=== PATIENT | male | born 1980 | race Caucasian/White ===

== ENCOUNTER 2020-11-21 14:47 | Outpatient (CLI) | payer OTHER | END 2020-11-21 14:56 | disposition home or self-care (01) | LOC: RAD 14:47 | DX: S23.428A Other sprain of sternum, initial encounter (principal); R22.2 Localized swelling, mass and lump, trunk ==

== ENCOUNTER 2021-02-22 11:25 | Outpatient (CLI) | payer BC | END 2021-02-22 11:27 | disposition home or self-care (01) | LOC: RAD 11:25 | DX: R07.1 Chest pain on breathing (principal) ==

== ENCOUNTER 2021-08-11 08:58 | Outpatient (CLI) | payer BC | END 2021-08-11 09:06 | disposition home or self-care (01) | LOC: LAB 08:58 | PROVIDERS: ATTEND General Practice | DX: R73.09 Other abnormal glucose (principal); Z00.00 Encounter for general adult medical examination without abnormal findings; Z13.29 Encounter for screening for other suspected endocrine disorder; Z13.220 Encounter for screening for lipoid disorders; Z20.5 Contact with and (suspected) exposure to viral hepatitis; Z12.5 Encounter for screening for malignant neoplasm of prostate; Z11.4 Encounter for screening for human immunodeficiency virus [HIV]; Z11.3 Encounter for screening for infections with a predominantly sexual mode of transmission; B00.89 Other herpesviral infection; N30.00 Acute cystitis without hematuria ==

== ENCOUNTER 2021-09-05 14:59 | Outpatient (CLI) | payer BC | END 2021-09-05 15:25 | disposition home or self-care (01) | LOC: LAB 14:59 | DX: B19.10 Unspecified viral hepatitis B without hepatic coma (principal); Z20.5 Contact with and (suspected) exposure to viral hepatitis ==

== ENCOUNTER 2021-09-13 14:34 | Outpatient (CLI) | payer BC | END 2021-09-13 14:48 | disposition home or self-care (01) | LOC: SONOGRAMA 14:34 | PROVIDERS: ATTEND General Practice | DX: R10.2 Pelvic and perineal pain (principal); N50.819 Testicular pain, unspecified ==

== ENCOUNTER 2023-03-18 14:29 | Outpatient (CLI) | payer OTHER | END 2023-03-18 14:48 | disposition home or self-care (01) | LOC: RAD 14:29 | PROVIDERS: ATTEND Urology | DX: N41.9 Inflammatory disease of prostate, unspecified (principal) ==

== ENCOUNTER 2023-03-19 08:32 | Outpatient (CLI) | payer OTHER | END 2023-03-19 08:38 | disposition home or self-care (01) | LOC: LAB 08:32 | PROVIDERS: ATTEND Urology | DX: N40.0 Benign prostatic hyperplasia without lower urinary tract symptoms (principal) ==

== ENCOUNTER 2023-04-24 09:49 | Outpatient (CLI) | payer OTHER | END 2023-04-24 10:00 | disposition home or self-care (01) | LOC: NUCLEAR 09:49 | PROVIDERS: ATTEND Internal Medicine Cardiovascular Disease | DX: I20.1 Angina pectoris with documented spasm (principal) ==

== ENCOUNTER → 2023-06-25 10:25 | Outpatient (CLI) | payer OTHER | END | disposition home or self-care (01) | LOC: NUCLEAR 10:00 | PROVIDERS: ATTEND Internal Medicine Cardiovascular Disease | DX: I10 Essential (primary) hypertension (principal) ==

== ENCOUNTER 2024-04-12 10:08 | Emergency (ER) | payer OTHER ==
[~2024-04-12] VITALS: Ht 167.6 cm; Wt 68.0 kg
[~2024-04-12 10:08] MED LIST: NEURONTIN300 MG PO; POLY119PG PO; TRAM1TAB98 PO
[2024-04-12] MEDS ORDERED: EZALLOR SPRINKL10 MG PO (10:26)
[2024-04-12] MEDS ORDERED: ACETAMINOPHEN 325 MG TABLET PO ONE (11:15)
[2024-04-12 11:37] LABS: HEMOGLOBIN 15.5 g/dL (13-16.00); MEAN CELL VOLUME 89.4 fL (80.0-100.00); MEAN CORPUSCULAR HEMOGLOBIN 30.2 pg (27.00-32.0); MEAN CORPUSCULAR HGB CONC 33.8 g/dl (32.0-36.0); RED BLOOD COUNT 5.15 M/uL (4.00-6.00); RED CELL DISTRIBUTION WIDTH 13.3 % (11.5-14.5)
[2024-04-12 11:38] LABS: PLATELET COUNT 83 K/uL (150-450)
== END 2024-04-12 14:50 | disposition home or self-care (01) ==
LOC: ER 10:08
PROVIDERS: General Practice
DX: A90 Dengue fever [classical dengue] (principal); Z20.822 Contact with and (suspected) exposure to COVID-19